=== PATIENT | male | born 1960 | race Caucasian/White ===

== ENCOUNTER 2020-11-18 06:12 | Day surgery (SDC) | payer OTHER ==
[~2020-11-18] VITALS: Ht 180.3 cm; Wt 96.0 kg
[~2020-11-18 06:12] MED LIST: ACETAMINOPHEN 500 MG TABLET PO PRN; BUPIVACAINE-EPI 0.25%-1:200000 MPF 30 ML VIAL. INJ ONE; LEVO25CA PO; PANT40TA77 PO
[2020-11-18] MEDS ORDERED: IBUP-1027 PO (06:17)
[2020-11-18] MEDS ORDERED: DOCU100C28 PO (06:17)
[2020-11-18] MEDS ORDERED: OMEP40CA45 PO (06:18)
[2020-11-18] MEDS ORDERED: ROCURONIUM 50 MG/5 ML VIAL. ONE (06:55)
[2020-11-18] MEDS ORDERED: SEVOFLURANE 61 TO 120 MINUTES. IH ONE ×2 (06:57→08:45)
[2020-11-18] MEDS ORDERED: DEXAMETHASONE SOD PHOS 4 MG/ML VIAL ONE (06:57)
[2020-11-18] MEDS ORDERED: ONDANSETRON PF 4 MG/2 ML VIAL. ONE (06:57)
[2020-11-18] MEDS ORDERED: LIDOCAINE 2% PF 5 ML VIAL. ONE (06:57)
[2020-11-18] MEDS ORDERED: PROPOFOL 10 MG/ML (20ML) VIAL. IV ONE (06:57)
[2020-11-18] MEDS ORDERED: PROCHLORPERAZINE 10 MG/2 ML VIAL. IV PRN (07:00)
[2020-11-18] MEDS ORDERED: MORPHINE SULFATE 2 MG/ML VIAL. IV PRN (07:00)
[2020-11-18] MEDS ORDERED: fentaNYL PF VIAL 100 MCG/2 ML VIAL IV PRN (07:00)
[2020-11-18] MEDS ORDERED: HYDROmorphone 2 MG/ML VIAL IV PRN (07:00)
[2020-11-18] MEDS ORDERED: IV RINGERS,LACTATED 1000ML 1,000 ML IV SCH (07:00)
[2020-11-18] MEDS ORDERED: ONDANSETRON PF 4 MG/2 ML VIAL. IV PRN (07:00)
[2020-11-18] MEDS ORDERED: MINERAL OIL for SURGERY 10 ML VIAL. MC ONE (07:08)
[2020-11-18] MEDS ORDERED: fentaNYL PF VIAL 100 MCG/2 ML VIAL ONE ×2 (07:28→09:45)
[2020-11-18] MEDS ORDERED: SUCCINYLCHOLINE 200 MG/10 ML VIAL. ONE (07:28)
[2020-11-18] MEDS ORDERED: MIDAZOLAM HCL/PF 2 MG/2 ML VIAL. ONE (07:32)
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
[2020-11-18] MEDS ORDERED: NEOSTIGMINE METHYLSULFATE 5 MG/5 ML SYRINGE. ONE (08:30)
[2020-11-18] MEDS ORDERED: GLYCOPYRROLATE 1 MG/5 ML VIAL. ONE (08:31)
[2020-11-18] MEDS ORDERED: KETOROLAC 30 MG/ML VIAL. ONE (08:45)
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
--- NOTE | 2020-11-18 09:06 | DISCH ---
DISCHARGE INSTRUCTIONS Condition on Discharge Condition on Discharge: Stable Activity After Discharge Activity Instructions for Disc: Avoid exertion Other activity instructions: No lifting more than 20 pounds for 2 weeks Diet after Discharge Diet after Discharge: Regular Wound Incision Care Other wound/incision instructi: May shower in 24 hours Contacting the after DC Call your doctor for: If your condition worsens Follow-Up Follow up with: Dr. Hernandez in 2 weeks LELAND HERNANDEZ MD Nov 18, 2020 09:06
[2020-11-18] MEDS ORDERED: HYDROcodone/APAP 5/325MG 1 TAB TABLET PO ONE ×2 (09:30)
[2020-11-18] MEDS ORDERED: HYDR-3164 PO (09:39)
[2020-11-18] MEDS: fentaNYL PF VIAL 100 MCG/2 ML VIAL IV PRN ×2 (09:48→09:55)
[2020-11-18 10:10] VITALS: BP 125/75
== END 2020-11-18 10:30 | disposition home or self-care (01) ==
LOC: SURG 06:12 → EEVIPCON 08:00 → SURG 10:30
PROVIDERS: ATTEND Surgery
DX: K43.2 Incisional hernia without obstruction or gangrene (principal); Z20.828 Contact with and (suspected) exposure to other viral communicable diseases; K22.0 Achalasia of cardia; E03.9 Hypothyroidism, unspecified; Z98.890 Other specified postprocedural states; Z79.899 Other long term (current) drug therapy
CPT/HCPCS: 49654; 87426; C1781; C9803; J0330; J0690; J1100; J1885; J2250; J2405; J2704; J2710; J3010; J3490; J7120; S2900; U0003